=== PATIENT | female | born 1955 | race Caucasian/White ===

== ENCOUNTER 2017-01-08 10:29 | Outpatient (RCR) | payer BC | END 2017-03-24 | disposition home or self-care (01) | DX: M54.5 Low back pain (principal) ==

== ENCOUNTER 2017-12-02 09:55 | Outpatient (RCR) | payer BC | END 2018-02-11 15:46 | disposition home or self-care (01) | DX: M62.89 Other specified disorders of muscle (principal) ==

== ENCOUNTER 2018-07-05 08:28 | Outpatient (RCR) | payer BC | END 2018-09-08 | disposition home or self-care (01) | DX: M25.551 Pain in right hip (principal) ==

== ENCOUNTER 2020-07-05 14:05 | Emergency (ER) | payer BC ==
[~2020-07-05] VITALS: Ht 172 cm; Wt 52.7 kg
[2020-07-05] MEDS ORDERED: fentaNYL INJECTION 100 MCG/2 ML AMP IVP ONE (14:30)
[2020-07-05] MEDS ORDERED: TETANUS,DIPTH,PERTUSS P/F (BOOSTRIX) 0.5 ML VIAL IM ONE (14:30)
[2020-07-05] MEDS ORDERED: fentaNYL INJECTION 100 MCG/2 ML AMP IM ONE (14:30)
[2020-07-05] MEDS ORDERED: LIDOCAINE/EPI 2% 1:100,00 (XYLOCAINE) 20 ML VIAL INJ ONE (14:30)
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
--- NOTE | 2020-07-05 15:07 | Diagnostic Imaging Report ---
HISTORY: Fall, right shoulder pain. TECHNIQUE: Three views of the right shoulder. COMPARISON: None. FINDINGS: There is a comminuted, mildly superiorly displaced fracture of the distal right clavicle. The acromioclavicular alignment is normal. Glenohumeral alignment is normal. No other fracture is seen. IMPRESSION: Comminuted, mildly displaced fracture of the distal right clavicle. Dictated by: Dictated on workstation # [id number]
--- NOTE | 2020-07-05 15:08 | Diagnostic Imaging Report ---
HISTORY: Fall, right arm pain. TECHNIQUE: Two views of the right humerus. COMPARISON: None. FINDINGS: No acute fracture or dislocation is seen in the right humerus. Alignment is normal. There is a mildly displaced comminuted fracture of the distal right clavicle. IMPRESSION: 1. No acute fracture in the right humerus. 2. Mildly displaced fracture of the lateral right clavicle. Dictated by: Dictated on workstation # [id number]
--- NOTE | 2020-07-05 15:08 | Diagnostic Imaging Report ---
HISTORY: Fall, right elbow pain. TECHNIQUE: Three views of the right elbow. COMPARISON: None. FINDINGS: No acute fracture or dislocation is seen in the right elbow. Alignment appears normal. Joint spaces are preserved. No joint effusion is seen. IMPRESSION: No acute osseous abnormality is seen in the right elbow. Dictated by: Dictated on workstation # [id number]
[2020-07-05] MEDS ORDERED: ACHD5005 PO (15:58)
[2020-07-05] MEDS ORDERED: SULF1TAB35 PO (15:58)
[2020-07-05] MEDS ORDERED: TRIM/SULFAMETH 160/800 (SEPTRA DS) TAB PO ONE (16:00)
[2020-07-05] MEDS ORDERED: HYDROcodone/APAP 5 MG/325 MG (LORTAB) TAB PO ONE (16:00)
--- NOTE | 2020-07-05 16:00 | NUR ---
HEMATOMA NOTED ON R FEMUR DR REINOSO AWARE X RAY ORDERED.
--- NOTE | 2020-07-05 16:47 | Diagnostic Imaging Report ---
EXAMINATION: Right femur radiographs, 2 views, 4 images. COMPARISON: None. HISTORY: 65-year-old female, fall. Right femur pain. FINDINGS: There is prominent soft tissue swelling laterally extending from the level of the greater trochanter distally to the level of the proximal femoral diaphysis. There is no identified radiopaque foreign body. There is no identified acute fracture. The right hip is not dislocated. There is no joint space loss of the right hip. There is no identified knee joint effusion. IMPRESSION: 1. Prominent nonspecific soft tissue swelling laterally at the level of the right proximal femur extending from the level of the greater trochanter to the proximal femoral diaphysis. 2. No identified radiopaque foreign body. 3. No identified acute fracture or dislocation. Dictated by: Dictated on workstation # [id number]
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
[2020-07-05 17:05] VITALS: BP 109/75
--- NOTE | 2020-07-05 17:05 | NUR ---
DISCHARGE AMB FEELING BETTER AFTER EATING PEANUT BUTTER AND CRACKERS.
--- NOTE | 2020-07-05 17:05 | NUR ---
DRESSING TO ABRASION ON R LEG AND R HIP ABRASION
--- NOTE | 2020-07-05 17:23 | NUR ---
CURRENT B/P 109/75. PT BEING DISCHARGED TO HOME
== END 2020-07-05 17:26 | disposition home or self-care (01) ==
LOC: EDUNIT# 14:05 → ER 14:06
DX: S42.031A Displaced fracture of lateral end of right clavicle, initial encounter for closed fracture (principal); S51.011A Laceration without foreign body of right elbow, initial encounter; S70.11XA Contusion of right thigh, initial encounter; S60.512A Abrasion of left hand, initial encounter; S60.511A Abrasion of right hand, initial encounter; S70.211A Abrasion, right hip, initial encounter; S80.211A Abrasion, right knee, initial encounter; R40.2410 Glasgow coma scale score 13-15, unspecified time; Z23 Encounter for immunization; V10.4XXA Pedal cycle driver injured in collision with pedestrian or animal in traffic accident, initial encounter
CPT/HCPCS: 73030; 73060; 73080; 73552; 99283; A4565; 90715

== ENCOUNTER 2020-10-03 08:23 | Outpatient (RCR) | payer BC ==
[~2020-10-03 08:23] MED LIST: ACHD5005 PO; SULF1TAB35 PO
== END 2020-10-09 | disposition home or self-care (01) ==
DX: S70.01XA Contusion of right hip, initial encounter (principal); J45.909 Unspecified asthma, uncomplicated

== ENCOUNTER 2020-11-27 08:07 | Outpatient (RCR) | payer BC | END 2020-11-27 16:30 | disposition home or self-care (01) | DX: S70.01XA Contusion of right hip, initial encounter (principal); X58.XXXA Exposure to other specified factors, initial encounter ==

== ENCOUNTER → 2023-02-06 | Outpatient (RCR) | payer MEDICARE, OTHER ==
[~2023-02-06] MED LIST changes: -SULF1TAB35 PO; +SULF1TAB38 PO
== END | disposition home or self-care (01) ==
PROVIDERS: ATTEND Nurse Practitioner Family
DX: M25.511 Pain in right shoulder (principal); M54.2 Cervicalgia

== ENCOUNTER 2023-03-04 14:51 | Outpatient (RCR) | payer MEDICARE, OTHER | END 2023-03-09 | disposition home or self-care (01) | PROVIDERS: ATTEND Nurse Practitioner Family | DX: M54.2 Cervicalgia (principal); M25.511 Pain in right shoulder; J45.909 Unspecified asthma, uncomplicated ==

== ENCOUNTER 2023-03-18 08:00 | Outpatient (RCR) | payer MEDICARE, OTHER | END 2023-04-09 | disposition home or self-care (01) | PROVIDERS: ATTEND Nurse Practitioner Family | DX: M54.2 Cervicalgia (principal); M25.511 Pain in right shoulder ==